=== PATIENT | female | born 1990 | race African-American/Black ===

== ENCOUNTER 2023-03-18 09:20 | Emergency (ER) | payer BC, MEDICAID ==
[2023-03-18] MEDS ORDERED: Ondansetron PF 4 MG/2 ML Vial ONE (10:33)
[2023-03-18] MEDS ORDERED: Acetaminophen 500 MG TAB ONE (10:33)
[2023-03-18 10:46] LABS: #Monocytes 0.4 thou/uL (0.11-0.59); #Neutrophils 3.1 thou/uL (1.40-6.50); %Basophils 0.4 % (0.0-1.0); %Eosinophils 0.7 % (0.0-10.0); %Lymphocytes 35.1 % (21.0-51.0); %Monocytes 6.4 % (0.0-10.0); %Neutrophils 57.2 % (42.0-75.0); Hematocrit 37.2 % (36.0-47.0); Hemoglobin 12.3 g/dL (12.0-16.0); Mean Corpuscular HGB CONC 33.1 g/dL (32.0-36.0); Mean Corpuscular Hemoglobin 28.5 pg (27.0-31.0); Mean Corpuscular Volume 86.1 fl (78.0-98.0); Mean Platelet Volume 10.1 fL (7.4-10.4); Platelet Count 204 10x3/uL (130-400); RBC Distribution Width 14.8 % (11.5-14.5); Red Blood Cell (RBC) Count 4.32 mill/uL (4.20-5.40); White Blood Cell (WBC) Count 5.5 10x3/uL (4.8-10.8)
[2023-03-18 10:56] LABS: BHCG - Serum Negative (NEGATIVE); Pregs Control Background? CLEAR/WHITE (CLR/WHITE); Pregs Control Bar Appear? YES (CONTROL BAR)
[2023-03-18 11:27] LABS: ALT (SGPT) 56 U/L (8-55); AST (SGOT) 48 U/L (5-34); Albumin 4.4 g/dL (3.5-5.0); Alkaline Phosphatase 56 U/L (40-110); Anion Gap 12 mmol/L (10-20); BUN (Urea Nitrogen) 7 mg/dL (7.0-18.7); Bilirubin, Total 0.3 mg/dL (0.2-1.2); Calc. Creatinine Clearance 0 mL/min (70-130); Calcium 9.1 mg/dL (7.8-10.44); Carbon Dioxide 26 mmol/L (22-29); Chloride 105 mmol/L (98-107); Estimated GFR 93; Globulin 2.8 g/dL (2.4-3.5); Glucose 121 mg/dL (70-105); Potassium 3.7 mmol/L (3.5-5.1); Protein, Total 7.2 g/dL (6.0-8.3); Sodium 139 mmol/L (136-145)
[2023-03-18] MEDS ORDERED: Ketorolac Tromethamine 30 MG/ML VIAL ONE (12:18)
[2023-03-18 13:22] LABS: Bacteria/HPF None Seen HPF (None Seen); Bilirubin Negative (Negative); Blood, Urine Negative (Negative); CAUTI Indications for Culture Fever or rigors; Clarity Clear (Clear); Glucose, Urine (Dipstick) Normal (Negative); Ketone, Urine Negative (Negative); Leukocyte 75 Leu/uL (Negative); Nitrite Negative (Negative); Protein, Urine (Dipstick) 10 mg/dL (Neg-Trace); Specific Gravity, Urine 1.023 (1.002-1.036); Squamous Epithelial 0-3 HPF (0-3); Urobilinogen Normal mg/dL (Less than 2); WBC/HPF 21-50 HPF (0-3); pH, Urine 6.5 (5.0-9.0)
[2023-03-18 13:24] LABS: Urine Culture Reflex Yes Yes
== END 2023-03-18 13:31 | disposition home or self-care (01) ==
LOC: ERS 09:20
DX: R51.9 Headache, unspecified (principal); R11.2 Nausea with vomiting, unspecified; I10 Essential (primary) hypertension; F17.210 Nicotine dependence, cigarettes, uncomplicated; Z91.148 Patient's other noncompliance with medication regimen for other reason; Z79.899 Other long term (current) drug therapy
CPT/HCPCS: 36415; 80053; 81001; 84703; 85025; 87086; 93005; 96361; 96374; 96375; J1885; J2405

== ENCOUNTER 2024-05-10 08:26 | Emergency (ER) | payer BC, SELFPAY ==
[2024-05-10 09:11] LABS: #Basophils Less than 0.03 10x3/uL (0.0-0.2); %Basophils 0.3 % (0.0-1.0); %Eosinophils 1.4 % (0.0-10.0); %Lymphocytes 38.3 % (21.0-51.0); %Monocytes 6.9 % (0.0-10.0); %Neutrophils 52.9 % (42.0-75.0); Hematocrit 37.8 % (36.0-47.0); Hemoglobin 12.5 g/dL (12.0-16.0); Mean Corpuscular HGB CONC 33.1 g/dL (32.0-36.0); Mean Corpuscular Hemoglobin 30.3 pg (27.0-31.0); Mean Corpuscular Volume 91.7 fL (78.0-98.0); Mean Platelet Volume 10.6 fL (7.4-10.4); Platelet Count 243 10x3/uL (130-400); RBC Distribution Width 13.2 % (11.5-14.5); Red Blood Cell (RBC) Count 4.12 mill/uL (4.20-5.40)
[2024-05-10 09:30] LABS: ALT (SGPT) 70 U/L (8-55); AST (SGOT) 59 U/L (5-34); Albumin 3.7 g/dL (3.5-5.0); Alkaline Phosphatase 64 U/L (40-110); Anion Gap 11 mmol/L (10-20); BUN (Urea Nitrogen) 7 mg/dL (7.0-18.7); Bilirubin, Total 0.2 mg/dL (0.2-1.2); Calc. Creatinine Clearance 0 mL/min (70-130); Carbon Dioxide 29 mmol/L (22-29); Chloride 102 mmol/L (98-107); Estimated GFR 85; Glucose 134 mg/dL (70-105); Potassium 2.9 mmol/L (3.5-5.1); Protein, Total 7.7 g/dL (6.0-8.3); Sodium 139 mmol/L (136-145)
[2024-05-10 10:30] LABS: Magnesium 1.9 mg/dL (1.6-2.6)
[2024-05-10] MEDS ORDERED: methylPREDNISolone Sod Succ/PF 125 MG/2 ML VIAL ONE (10:57)
[2024-05-10] MEDS ORDERED: Acetaminophen 500 MG TAB ONE (10:57)
[2024-05-10] MEDS ORDERED: Potassium Chloride 20 MEQ TAB ONE ×2 (10:57)
[2024-05-10] MEDS ORDERED: Magnesium 2 GM/50 ML BAG (IN WATER) ONE (10:57)
[2024-05-10 12:15] LABS: Troponin I Less than 0.010 ng/mL (< 0.028)
== END 2024-05-10 13:08 | disposition home or self-care (01) ==
LOC: ERS 08:26
DX: R55 Syncope and collapse (principal); S06.0X0A Concussion without loss of consciousness, initial encounter; I10 Essential (primary) hypertension; F17.210 Nicotine dependence, cigarettes, uncomplicated; Z79.899 Other long term (current) drug therapy
CPT/HCPCS: 36415; 36416; 70450; 80053; 83735; 84484; 85025; 93005; 96374; 96375; J2919; J3475